=== PATIENT | male | born 1940 | race Caucasian/White ===

== ENCOUNTER 2017-03-10 21:27 | Emergency (ER) | payer MEDICARE ==
[2017-03-10] MEDS ORDERED: cloNIDine 0.1 MG TAB ONE ×2 (22:07→23:22)
== END 2017-03-11 00:15 | disposition home or self-care (01) ==
LOC: ERS 21:27
DX: I10 Essential (primary) hypertension (principal); E78.5 Hyperlipidemia, unspecified; Z85.038 Personal history of other malignant neoplasm of large intestine; Z79.82 Long term (current) use of aspirin; Z79.899 Other long term (current) drug therapy
CPT/HCPCS: 99283

== ENCOUNTER 2022-07-20 10:27 | Outpatient (CLI) | payer MEDICARE, OTHER ==
[2022-07-20 13:05] LABS: #Basophils 0.1 10x3/uL (0.0-0.2); #Eosinphils 0.3 10x3/uL (0.0-0.5); #Monocytes 1.2 10x3/uL (0.0-1.1); #Neutrophils 7.9 10x3/uL (1.5-8.4); %Basophils 0.6 % (0.0-2.0); %Eosinophils 2.7 % (0.0-6.0); %Lymphocytes 10.6 % (18.0-47.0); %Neutrophils 74.7 % (40.0-75.0); Mean Corpuscular HGB CONC 32.7 g/dL (32.0-36.0); Mean Corpuscular Hemoglobin 30.5 pg (27.0-33.0); Mean Corpuscular Volume 93.3 fl (81.2-95.1); Mean Platelet Volume 9.9 fl (7.4-10.4); Platelet Count 179 10x3/uL (150-450); RBC Distribution Width 12.9 % (11.5-14.5); Red Blood Cell (RBC) Count 5.25 10x6/uL (4.32-5.72); White Blood Cell (WBC) Count 10.6 10x3/uL (3.5-10.5)
[2022-07-20 13:30] LABS: Anion Gap 14 mmol/L (10-20); BUN (Urea Nitrogen) 21 mg/dL (8.4-25.7); Calc. Creatinine Clearance 0 mL/min (70-130); Calcium 11.4 mg/dL (7.8-10.44); Carbon Dioxide 24 mmol/L (23-31); Chloride 106 mmol/L (98-107); Estimated GFR 57; Glucose 99 mg/dL (83-110); Potassium 4.5 mmol/L (3.5-5.1); Sodium 139 mmol/L (136-145)
[2022-07-20 20:19] LABS: Hemoglobin A1c 5.4 % (4.0-6.0)
== END 2022-07-20 10:28 | disposition home or self-care (01) ==
LOC: LABBT 10:27
PROVIDERS: ATTEND Surgery
DX: Z01.812 Encounter for preprocedural laboratory examination (principal)
CPT/HCPCS: 80048; 83036; 85025; 93005; 93010

== ENCOUNTER 2022-07-20 11:00 | Inpatient (IN) | payer MEDICARE, OTHER ==
[2022-07-20 10:57] VITALS: BMI 29.4
[2022-07-23] MEDS ORDERED: Sodium Chloride 0.9% 100 ML ONE (06:41)
[2022-07-23] MEDS ORDERED: cefOXitin 2 GM VIAL ONE ×2 (06:41→09:39)
[2022-07-23] MEDS ORDERED: Lidocaine 1% MPF 2 ML VIAL ONE (06:41)
[2022-07-23] MEDS ORDERED: Vasopressin 20 UNITS/ML VIAL ONE (06:55)
[2022-07-23] MEDS ORDERED: fentaNYL PF 100 MCG/2 ML SYRINGE ONE (06:55)
[2022-07-23] MEDS ORDERED: Albumin 5% 500 ML ONE ×2 (07:31→10:48)
[2022-07-23] MEDS ORDERED: SUGAMMADEX SODIUM 200 MG/2 ML VIAL ONE (07:31)
[2022-07-23] MEDS ORDERED: Albuterol HFA (OR) 200 PUFF INH ONE (07:31)
[2022-07-23] MEDS ORDERED: Phenylephrine 10 MG/ML VIAL ONE ×2 (07:31→10:36)
[2022-07-23] MEDS ORDERED: fentaNYL 50 mcg/mL 1 mL Vial ONE (07:37)
[2022-07-23] MEDS ORDERED: Vecuronium 10 MG VIAL ONE (07:46)
[2022-07-23] MEDS ORDERED: Lidocaine 1% PF 5 ML VIAL ONE (07:46)
[2022-07-23] MEDS ORDERED: PROPOFOL 200 MG/20 ML VIAL ONE (07:46)
[2022-07-23] MEDS ORDERED: Ondansetron PF 4 MG/2 ML Vial ONE (07:46)
[2022-07-23] MEDS ORDERED: Glycopyrrolate 0.2 MG/ML 5 ML SYRINGE ONE (07:46)
[2022-07-23] MEDS ORDERED: Dexamethasone 20 MG/5 ML VIAL ONE (07:46)
[2022-07-23] MEDS ORDERED: ePHEDrine Sulfate 50 MG/10 ML VIAL ONE (07:46)
[2022-07-23] MEDS ORDERED: NEOSTIGMINE 3 MG/3 ML SYR 3 MG/3 ML SYRINGE ONE (07:46)
[2022-07-23] MEDS ORDERED: PHENYLEPHRINE-NS 100 MCG/ML 10 ML SYRINGE ONE (07:46)
[2022-07-23] MEDS ORDERED: Rocuronium Bromide 10 MG/ML (10ML VIAL) ONE (07:46)
[2022-07-23] MEDS ORDERED: Ropivacaine 0.5% HCl/PF (150 MG/30 ML VIAL) ONE (09:49)
[2022-07-23] MEDS ORDERED: Promethazine HCl 25 MG/ML VIAL IM PRN ×3 (12:31→14:23)
[2022-07-23] MEDS ORDERED: Ondansetron PF 4 MG/2 ML Vial IVP PRN ×2 (12:31→12:45)
[2022-07-23] MEDS ORDERED: Ipratropium/Albuterol 3 ML NEB NEB PRN (12:31)
[2022-07-23] MEDS ORDERED: hydrALAZINE 20 MG/ML VIAL SLOW IVP PRN (12:31)
[2022-07-23] MEDS ORDERED: diphenhydrAMINE 25 MG CAP PO PRN (12:45)
[2022-07-23] MEDS ORDERED: diphenhydrAMINE 50 MG/ML VIAL IM/IV PRN (12:45)
[2022-07-23] MEDS ORDERED: Zolpidem Tartrate 5 MG TAB PO PRN (12:45)
[2022-07-23] MEDS ORDERED: Naloxone HCl 0.4 mg/ml Vial IV PRN (12:45)
[2022-07-23] MEDS ORDERED: Fentanyl CADD 100 ML IVPB SCH (12:45)
[2022-07-23] MEDS ORDERED: MINERAL OIL/WHITE PETROLATUM 3.5 GM TUBE ONE (14:43)
[2022-07-23] MEDS ORDERED: CEFAZOLIN 2 GM VIAL ONE (14:44)
[2022-07-23] MEDS: cefOXitin 2 GM in Sodium Chloride 0.9% 100 ML IVPB SCH ×2 (14:49→21:56)
[2022-07-23] MEDS: Sodium Chloride 0.9% 1,000 ML IV SCH ×2 (14:49→21:59)
[2022-07-23] MEDS ORDERED: Non-Formulary Item 1 EACH (Olmesartan Medoxomil [Benicar] 40 MG Tablet) PO SCH (21:00)
[2022-07-23] MEDS: Famotidine/PF 20 mg/2ml Vial SLOW IVP SCH (21:56)
[2022-07-23] MEDS: Tamsulosin HCl 0.4 MG CAP PO SCH (21:56)
[2022-07-23] MEDS: Losartan 25 MG TAB PO SCH (21:56)
[2022-07-23] MEDS: Famotidine 20 MG TAB PO SCH (21:57)
[2022-07-24] MEDS: Sodium Chloride 0.9% 1,000 ML IV SCH (06:27)
[2022-07-24 06:32] LABS: Anion Gap 12 mmol/L (10-20); BUN (Urea Nitrogen) 20 mg/dL (8.4-25.7); Calc. Creatinine Clearance 84 mL/min (70-130); Calcium 9.7 mg/dL (7.8-10.44); Carbon Dioxide 16 mmol/L (23-31); Chloride 111 mmol/L (98-107); Estimated GFR 85; Glucose 130 mg/dL (83-110); Potassium 4.9 mmol/L (3.5-5.1); Sodium 134 mmol/L (136-145)
[2022-07-24 06:39] LABS: Band 15 % (5-11); Hemoglobin 12.5 g/dL (14.0-18.0); Hypochromia SLIGHT = 6-15 cells (100X) (0-5/hpf); Lymphocytes 18 % (21-51); MDiff Complete? YES; Mean Corpuscular HGB CONC 33.9 g/dL (32.0-36.0); Mean Corpuscular Hemoglobin 32.9 pg (27.0-31.0); Mean Corpuscular Volume 97.2 fl (78.0-98.0); Mean Platelet Volume 7.5 fL (7.4-10.4); Monocytes 3 % (0-10); Neutrophil 64 % (42-75); Platelet Count 126 10x3/uL (130-400); Platelet Morphology Comment Appears Decreased; RBC Distribution Width 12.2 % (11.5-14.5); White Blood Cell (WBC) Count 12.4 10x3/uL (4.8-10.8)
[2022-07-24] MEDS ORDERED: Fentanyl 100 MCG/2 ML VIAL SLOW IVP PRN (09:10)
[2022-07-24] MEDS ORDERED: traMADol HCl 50 MG TAB PO PRN (09:10)
[2022-07-24] MEDS: Famotidine/PF 20 mg/2ml Vial SLOW IVP SCH ×2 (09:15→21:51)
[2022-07-24] MEDS: Famotidine 20 MG TAB PO SCH ×2 (09:16→21:50)
[2022-07-24] MEDS: Amlodipine 10 MG TAB PO SCH (09:16)
[2022-07-24] MEDS ORDERED: fentaNYL 50 mcg/mL 1 mL Vial SLOW IVP PRN (09:21)
[2022-07-24] MEDS: Losartan 25 MG TAB PO SCH (21:49)
[2022-07-24] MEDS: Tamsulosin HCl 0.4 MG CAP PO SCH (21:50)
[2022-07-25] MEDS: Amlodipine 10 MG TAB PO SCH (08:57)
[2022-07-25] MEDS: Famotidine 20 MG TAB PO SCH ×2 (08:57→20:11)
[2022-07-25] MEDS: Famotidine/PF 20 mg/2ml Vial SLOW IVP SCH ×2 (10:36→20:11)
[2022-07-25] MEDS ORDERED: HYDROcodone/Acetaminophen 7.5/325 mg Tablet PO PRN ×2 (12:19)
[2022-07-25] MEDS: Tamsulosin HCl 0.4 MG CAP PO SCH (20:11)
[2022-07-25] MEDS: Losartan 25 MG TAB PO SCH (20:11)
[2022-07-26 07:22] LABS: #Eosinphils 0.2 thou/uL (0.0-0.7); #Lymphocytes 0.8 thou/uL (1.20-3.40); #Monocytes 1.2 thou/uL (0.11-0.59); #Neutrophils 7.9 thou/uL (1.40-6.50); %Basophils 0.2 % (0.0-1.0); %Eosinophils 2.1 % (0.0-10.0); %Lymphocytes 8.1 % (21.0-51.0); %Monocytes 11.8 % (0.0-10.0); %Neutrophils 77.8 % (42.0-75.0); Hemoglobin 12.3 g/dL (14.0-18.0); Mean Corpuscular HGB CONC 33.7 g/dL (32.0-36.0); Mean Corpuscular Hemoglobin 32.5 pg (27.0-31.0); Mean Corpuscular Volume 96.3 fl (78.0-98.0); Mean Platelet Volume 7.4 fL (7.4-10.4); Platelet Count 170 10x3/uL (130-400); Red Blood Cell (RBC) Count 3.78 mill/uL (4.70-6.10); White Blood Cell (WBC) Count 10.2 10x3/uL (4.8-10.8)
[2022-07-26 09:03] VITALS: BP 143/85; TEMP 97.5
[2022-07-26] MEDS: Famotidine 20 MG TAB PO SCH (09:08)
[2022-07-26] MEDS: Amlodipine 10 MG TAB PO SCH (09:08)
[2022-07-26] MEDS: Famotidine/PF 20 mg/2ml Vial SLOW IVP SCH (13:04)
[2022-08-05 13:05] LABS: Actual Bicarbonate (HCO3a) 18.9 mEq/L (22-28); Analyzer IN Cardio OR; Base Excess (BEa) -7.8 mEq/L (-2.0 to +3.0); CO2 Tension 42.4 mmHg (35.0-45.0); Calcium, Ionized (arterial) 1.25 mmol/L (1.12-1.30); Carboxyhemoglobin (COHb) 1.5 gm% (0.0-3.0); Hematocrit-ABG 42 % (42.0-52.0); Hemoglobin (Hb) 14.2 g/dL (14.0-18.0); O2 Tension (PaO2), arterial 170.7 mmHg (> 60.0); Potassium - ABG Lab 4.26 mmol/L (3.70-5.30); pH, Arterial 7.266 (7.35-7.45)
[2022-08-05 13:06] LABS: Puncture Site Arterial Line
== END 2022-07-26 12:30 | disposition home or self-care (01) | DRG 331 ==
LOC: SURG A 07-23 05:50 → SURG B 07-23 19:37
PROVIDERS: ADMIT Surgery; ATTEND Surgery
PROC: 0DTF0ZZ Resection of Right Large Intestine, Open Approach (ICD-10-PCS; principal; 2022-07-23)
PROC: 0DNE4ZZ Release Large Intestine, Percutaneous Endoscopic Approach (ICD-10-PCS; 2022-07-23)
DX: K63.5 Polyp of colon (principal); I10 Essential (primary) hypertension; K66.0 Peritoneal adhesions (postprocedural) (postinfection); Z79.899 Other long term (current) drug therapy; Z90.49 Acquired absence of other specified parts of digestive tract; Z80.9 Family history of malignant neoplasm, unspecified; Z53.31 Laparoscopic surgical procedure converted to open procedure; Z85.038 Personal history of other malignant neoplasm of large intestine
CPT/HCPCS: 36415; 36416; 80048; 82805; 85025; 88309; A4649; C1889; J0694; J1100; J1650; J2370; J2405; J2704; J2795; J3010; J3490; J7050; P9045; S0028